=== PATIENT | female | born 1990 | race Caucasian/White ===

== ENCOUNTER → 2016-08-13 | Outpatient (CLI) | payer OTHER ==
--- NOTE | 2016-08-13 15:56 | US ---
Transabdominal and Transvaginal Pelvic Ultrasound History: 26-year-old with chronic pelvic pain for five years, LMP August 10, 2016. Comparison: None available. Findings: Transabdominal: The uterus measures 8.2 x 4.4 x 3.8 cm. The bladder is normal. Transvaginal: No fibroids are present. The endometrium is homogeneous and measures 3 mm. The left ovary measures 2.8 x 2.4 x 2.8 cm, with an ovarian volume of 9.6 mL. The right ovary measures 4.3 x 1.9 x 2.2 cm, with an ovarian volume of 9.6 mL. Approximately 12 small follicles are distributed thr oughout the right ovary. No adnexal masses are identified. Normal arterial blood flow is documented to both ovaries by Doppler ultrasound. There is no free fluid. Impression: Polycystic right ovary.
== END ==
LOC: FIMAGING 13:49
PROVIDERS: ATTEND Nurse Practitioner Family
DX: E28.2 Polycystic ovarian syndrome (principal)